=== PATIENT | male | born 1965 | race Caucasian/White ===

== ENCOUNTER 2017-08-17 07:45 | Emergency (ER) | payer OTHER ==
[2017-08-17 08:11] VITALS: BP 152/100
--- NOTE | 2017-08-17 08:40 | UC ---
Throat Pain/Nasal Dmitry HPI - HPI Summary HPI Summary: 51 yo WM c/o sore throat x 3 days and "swollen uvula" that they are concerned about. Denies f/c/cough/nasal congestion. 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 - History of Current Complaint Chief Complaint: UCGeneralIllness Stated Complaint: ST Time Seen by Provider: 08/17/17 08:08 Hx Obtained From: Patient Hx From Patient Unobtainable Due To: Other Onset/Duration: Sudden Onset Severity: Moderate Pain Intensity: 4 Cough: Nonproductive Associated Signs & Symptoms: Positive: Negative - Allergies/Home Medications Allergies/Adverse Reactions: Allergies Allergy/AdvReac Type Severity Reaction Status Date / Time No Known Allergies Allergy Verified 08/17/17 08:11 Home Medications: Home Medications NK [No Home Medications Reported] 08/17/17 [History Confirmed 08/17/17] PMH/Surg Hx/FS Hx/Imm Hx - Additional Past Medical History Additional PMH: none Previously Healthy: Yes - Surgical History Surgical History: None - Social History Alcohol Use: Weekly Substance Use Type: None Smoking Status (MU): Never Smoked Tobacco Review of Systems Constitutional: Negative Skin: Negative Eyes: Negative ENT: Sore Throat Respiratory: Negative Cardiovascular: Negative Gastrointestinal: Negative Genitourinary: Negative Motor: Negative Neurovascular: Negative Musculoskeletal: Negative Neurological: Negative Psychological: Negative All Other Systems Reviewed And Are Negative: Yes Physical Exam Triage Information Reviewed: Yes Appearance: Well-Appearing Vital Signs: Initial Vital Signs Temp 37.0 C 08/17/17 08:07 Pulse 60 08/17/17 08:07 Resp 16 08/17/17 08:07 BP 152/100 08/17/17 08:07 Pulse Ox 99 08/17/17 08:07 Vital Signs Reviewed: Yes Eye Exam: Normal Eyes: Positive: Conjunctiva Clear ENT: Positive: Hearing grossly normal, Pharyngeal erythema, TMs normal, Uvula midline - erythema and mild swelling, no exudates. Negative: Tonsillar swelling , Tonsillar exudate, Sinus tenderness Neck exam: Normal Respiratory Exam: Normal Respiratory: Positive: Lungs clear Cardiovascular Exam: Normal Cardiovascular: Positive: RRR Abdominal Exam: Normal Musculoskeletal Exam: Normal Neurological Exam: Normal Neurological: Positive: Alert Psychological Exam: Normal Skin Exam: Normal Throat Pain/Nasal Course/Dx - Course Course Of Treatment: rapid strep neg - Differential Dx/Diagnosis Provider Diagnoses: pharyngitis. elevated BP w/o dx of HTN Discharge - Sign-Out/Discharge Documenting (check all that apply): Discharge/Admit/Transfer - Discharge Plan Condition: Stable Disposition: HOME Patient Education Materials: Pharyngitis (ED) Referrals: Non Staff,Doctor [Primary Care Provider] - Additional Instructions: Supportive care, Cepacol spray over the counter, Throat lozenges and Salt water gargling morning and night - Billing Disposition and Condition Condition: STABLE Disposition: HOME
== END 2017-08-17 08:44 | disposition home or self-care (01) ==
LOC: UCCORT 07:45
DX: J02.9 Acute pharyngitis, unspecified (principal); R03.0 Elevated blood-pressure reading, without diagnosis of hypertension
CPT/HCPCS: 87651; 99201; G0463